=== PATIENT | male | born 1980 | race Caucasian/White ===

== ENCOUNTER 2022-05-28 13:35 | Emergency (ER) | payer OTHER ==
[2022-05-28] MEDS: Sodium Chloride 0.9% 1,000 ML IV SCH (15:30)
[2022-05-28] MEDS: Acetaminophen 500 MG Tab PO ONE (15:53)
[2022-05-28] MEDS: Acetaminophen 500 MG Tab ONE (15:54)
[2022-05-28] MEDS ORDERED: Sodium Chloride 0.9% 50 ML SDV FLUSH ONE (16:46)
[2022-05-28] MEDS ORDERED: Iopamidol 612 MG/ML 100 ML Bottle IV SCH (17:00)
[2022-05-28] MEDS ORDERED: Sodium Chloride 0.9% 10 ML Syringe FLUSH PRN (17:00)
[2022-05-28] MEDS: cefTRIAXone 2 GM Vial ONE (18:34)
[2022-05-28] MEDS: cefTRIAXone 2 GM in Sodium Chloride 0.9% 100 ML IV ONE (18:35)
[2022-05-28] MEDS ORDERED: Amoxicillin/Clavulanate K 875-125 MG Tab ONE (19:00)
[2022-05-28] MEDS ORDERED: Azithromycin 250 MG Tab ONE (19:00)
[2022-05-28 19:19] VITALS: BP 119/83; PULSE 112
== END 2022-05-28 19:00 | disposition home or self-care (01) ==
LOC: LB.ED 13:35
DX: J18.9 Pneumonia, unspecified organism (principal); Z20.822 Contact with and (suspected) exposure to COVID-19
CPT/HCPCS: 36415; 71046; 71260; 80048; 85025; 87804; 87804-59; 96361; 96374; 99285-25; A9270-GY; J0696; J3490; J7030; U0002

== ENCOUNTER 2024-09-02 14:30 | Emergency (ER) | payer OTHER ==
[2024-09-02] MEDS ORDERED: Sodium Chloride 0.9% 10 ML Syringe FLUSH PRN (15:13)
[2024-09-02] MEDS: diphenhydrAMINE 50 MG/ML SDV IVPUSH ONE (15:22)
[2024-09-02 15:26] LABS: HEMATOCRIT 41.5 % (40.0-54.0); HEMOGLOBIN 16.1 g/dL (13.0-18.0); MEAN CORPUSCULAR HEMOGLOBIN 33.1 pg (27.0-32.0); MEAN CORPUSCULAR HGB CONC 38.8 g/dL (31.0-35.0); MEAN PLATELET VOLUME 9.7 fL (6.0-10.0); RED BLOOD CELL COUNT 4.87 M/uL (4.50-6.50); RED CELL DISTRIBUTION WIDTH 13.4 % (11.0-16.0); WHITE BLOOD CELL COUNT,WBC 7.2 K/uL (4.0-11.0)
[2024-09-02] MEDS: Sodium Chloride 0.9% 1,000 ML IV SCH (15:32)
[2024-09-02 15:37] LABS: ANION GAP 0.7 mmol/L (5.0-15.0); BLOOD UREA NITROGEN,BUN 15 mg/dL (8-26); BUN/CREATININE RATIO 20.5 (6-25); CALCIUM 8.9 mg/dL (8.5-10.1); CARBON DIOXIDE,CO2 27.2 mmol/L (21.0-32.0); CHLORIDE,CL 105 mmol/L (98-107); CREATININE 0.73 mg/dL (0.70-1.30); EST CRCL DRUG DOSING (CG) 147.01 mL/min; ESTIMATED GFR 114 mL/min (>60); GLUCOSE RANDOM 126 mg/dL (74-100); MAGNESIUM 1.9 mg/dL (1.8-2.4); POTASSIUM,K 3.9 mmol/L (3.5-5.1); SODIUM,NA 129 mmol/L (136-145)
[2024-09-02 15:59] LABS: TROPONIN I HIGH SENSITIVITY < 4.0 pg/ml (<=60.4)
[2024-09-02] MEDS ORDERED: Sodium Chloride 0.9% 1,000 ML IV SCH (16:30)
[2024-09-02 18:12] LABS: ANION GAP 9.2 mmol/L (5.0-15.0); BUN/CREATININE RATIO 18.7 (6-25); CALCIUM 8.6 mg/dL (8.5-10.1); CARBON DIOXIDE,CO2 28.9 mmol/L (21.0-32.0); CREATININE 0.75 mg/dL (0.70-1.30); EST CRCL DRUG DOSING (CG) 143.09 mL/min; POTASSIUM,K 4.1 mmol/L (3.5-5.1)
== END 2024-09-02 18:52 | disposition home or self-care (01) ==
LOC: LB.ED 14:30
DX: E87.1 Hypo-osmolality and hyponatremia (principal)
CPT/HCPCS: 36415; 70450; 80048; 83735; 84484; 85027; 93005; 93010; 96361; 96374; 99284; 99284-25; A9270-GY; J1200; J7030

== ENCOUNTER 2024-11-12 13:44 | Emergency (ER) | payer OTHER ==
[2024-11-12] MEDS ORDERED: Mupirocin Oint 22 GM Tube ONE (14:00)
[2024-11-12] MEDS ORDERED: predniSONE 10 MG Tab ONE (14:00)
[2024-11-12] MEDS: Famotidine 20 MG Tab PO ONE (14:15)
[2024-11-12] MEDS: Mupirocin Oint 22 GM Tube TOP ONE (14:15)
[2024-11-12] MEDS: Cetirizine 10 MG Tab PO ONE (14:15)
== END 2024-11-12 14:28 | disposition home or self-care (01) ==
LOC: LB.ED 13:44
DX: L23.7 Allergic contact dermatitis due to plants, except food (principal); Z87.891 Personal history of nicotine dependence
CPT/HCPCS: 99282; A9270